=== PATIENT | male | born 1950 | race Caucasian/White ===

== ENCOUNTER → 2018-05-07 09:46 | Outpatient (POV) | payer MEDICARE, SELFPAY ==
--- NOTE | 2018-05-07 10:14 | PC.NURSE ---
patient and family have new patient paperwork and are completing at this time
[2018-05-07 11:03] VITALS: BP 177/105; PULSE 71; RESP 16; O2SAT 95; BMI 25.6
--- NOTE | 2018-05-07 12:34 | [facility].PMCON ---
Assessment and Plan (1) Complex regional pain syndrome type I of right upper extremity Current visit: Yes Status: Acute Category: Medical Code(s): G90.511 - Complex regional pain syndrome I of right upper limb This patient is failed all conservative therapy and developed complex regional pain syndrome type I of the right upper extremity. We will seek approval for spinal cord stimulator trial. We will schedule psychological evaluation. We will plan on spinal cord stimulator trial with Nuvectra with leads placed at C4 C5-C6-C7. HPI - Data of Consult Patient: new to practice Consult date: 05/07/18 Requesting Physician: Feliz Haddad MD Primary Care Provider: Referral Provider, - Consult Narrative Reason for consult: Right upper extremity complex regional pain syndrome type I History of present illness: Mr. Anderson is a 67 year old male who has CRPS type I of the right upper extremity. This was after peripheral IV placement with subsequent hematoma when he was admitted for a kidney stone in August 2012. 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 He has some use of his right hand however has significant pain with color changes and swelling. He has developed complex regional pain syndrome type I of the right upper extremity from the elbow to the hand. He also does have some significant temperature changes. He has tried and failed all conservative therapy including oral medications. He was referred by his orthopedic surgeon to us for spinal cord stimulation evaluation. CC: Feliz Haddad MD [facility] History I have reviewed the patient's past medical history: Yes Medical History: Reports:: Hyperlipidemia, Hypertension, Palpitations (atrial fibrillation) Denies:: Diabetes Mellitus Type 1, Diabetes Mellitus Type 2 Other Medical History: Reports: Arthritis (rheumatoid) Amputation: No Fractures: No - *Social History Educational Level: Attended College Smoking Status: Unknown if ever smoked Alcohol Intake: never Occupational Status: retired Housing: house Household Members: spouse - Psychiatric History Expresses thoughts of harming self/others: None Suicide Plan Description: No Plan Review of Systems - Review of Systems Review of systems:: pertinent systems reviewed and negative unless documented below - *Musculoskeletal Reports deformity, Reports joint swelling, Reports limited joint movement, Reports radiating pain into limb, Reports stiffness, Reports tingling Meds Home Medications Medication Instructions Recorded Confirmed Type Amitriptyline HCl [Elavil 10mg 20 mg PO DIRECTED 05/07/18 05/07/18 History tablet] Aspirin [Low Dose Aspirin EC] 81 mg PO DAILY 05/07/18 05/07/18 History Atorvastatin Calcium [Lipitor 80mg 134 mg PO DAILY 05/07/18 05/07/18 History Tablet] LORazepam [Ativan] 0.5 mg PO BID 05/07/18 05/07/18 History Losartan Potassium 100 mg PO DAILY 05/07/18 05/07/18 History Metoprolol Tartrate 25 mg PO BID 05/07/18 05/07/18 History Oxybutynin Chloride [Ditropan Xl] 5 mg PO BID 05/07/18 05/07/18 History Oxycodone HCl/Acetaminophen 1 tab PO DIRECTED 05/07/18 History [Percocet 10-325 mg Tab] Simvastatin [Zocor] 20 mg PO DAILY 05/07/18 05/07/18 History Allergies Allergy/AdvReac Type Severity Reaction Status Date / Time No Known Allergies Allergy Verified 05/07/18 11:16 Objective Vital signs: Pulse Resp BP Pulse Ox 71 16 177/105 95 05/07/18 11:03 05/07/18 11:03 05/07/18 11:03 05/07/18 11:03 - *Routine Neurological Exam Present: alert, oriented X3, moving all extremities Opioid Risk Tool - Opioid Risk Tool-Male Family hx alcohol abuse: N Family hx illegal drugs: N Family hx rx drug abuse: N Personal hx alcohol abuse: N Personal hx illegal drugs: N Personal hx rx drug abuse: N Age: 45+ Hx of sexual abuse: N Mental health issues-ADD,OCD,Bipolar, etc: N Hx of depr
--- NOTE | 2018-05-07 12:37 | P.CONS_ITS ---
Assessment and Plan (1) Complex regional pain syndrome type I of right upper extremity Current visit: Yes Status: Acute Category: Medical Code(s): G90.511 - Complex regional pain syndrome I of right upper limb This patient is failed all conservative therapy and developed complex regional pain syndrome type I of the right upper extremity. We will seek approval for spinal cord stimulator trial. We will schedule psychological evaluation. We will plan on spinal cord stimulator trial with Nuvectra with leads placed at C4 C5-C6-C7. HPI - Data of Consult Patient: new to practice Consult date: 05/07/18 Requesting Physician: Feliz Haddad MD Primary Care Provider: Referral Provider, - Consult Narrative Reason for consult: Right upper extremity complex regional pain syndrome type I History of present illness: Mr. Anderson is a 67 year old male who has CRPS type I of the right upper extremity. This was after peripheral IV placement with subsequent hematoma when he was admitted for a kidney stone in August 2012. 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 He has some use of his right hand however has significant pain with color changes and swelling. He has developed complex regional pain syndrome type I of the right upper extremity from the elbow to the hand. He also does have some significant temperature changes. He has tried and failed all conservative therapy including oral medications. He was referred by his orthopedic surgeon to us for spinal cord stimulation evaluation. CC: Feliz Haddad MD [facility] History I have reviewed the patient's past medical history: Yes Medical History: Reports:: Hyperlipidemia, Hypertension, Palpitations (atrial fibrillation) Denies:: Diabetes Mellitus Type 1, Diabetes Mellitus Type 2 Other Medical History: Reports: Arthritis (rheumatoid) Amputation: No Fractures: No - *Social History Educational Level: Attended College Smoking Status: Unknown if ever smoked Alcohol Intake: never Occupational Status: retired Housing: house Household Members: spouse - Psychiatric History Expresses thoughts of harming self/others: None Suicide Plan Description: No Plan Review of Systems - Review of Systems Review of systems:: pertinent systems reviewed and negative unless documented below - *Musculoskeletal Reports deformity, Reports joint swelling, Reports limited joint movement, Reports radiating pain into limb, Reports stiffness, Reports tingling Meds Home Medications Medication Instructions Recorded Confirmed Type Amitriptyline HCl [Elavil 10mg 20 mg PO DIRECTED 05/07/18 05/07/18 History tablet] Aspirin [Low Dose Aspirin EC] 81 mg PO DAILY 05/07/18 05/07/18 History Atorvastatin Calcium [Lipitor 80mg 134 mg PO DAILY 05/07/18 05/07/18 History Tablet] LORazepam [Ativan] 0.5 mg PO BID 05/07/18 05/07/18 History Losartan Potassium 100 mg PO DAILY 05/07/18 05/07/18 History Metoprolol Tartrate 25 mg PO BID 05/07/18 05/07/18 History Oxybutynin Chloride [Ditropan Xl] 5 mg PO BID 05/07/18 05/07/18 History Oxycodone HCl/Acetaminophen 1 tab PO DIRECTED 05/07/18 History [Percocet 10-325 mg Tab] Simvastatin [Zocor] 20 mg PO DAILY 05/07/18 05/07/18 History Allergies Allergy/AdvReac Type Severity Reaction Status Date / Time No Known Allergies Allergy Verified 05/07/18 11
== END ==
PROVIDERS: Visit Provider Anesthesiology
DX: G90.511 Complex regional pain syndrome I of right upper limb (principal)
CPT/HCPCS: 99201

== ENCOUNTER → 2018-07-13 09:33 | Outpatient (POV) | payer MEDICARE, SELFPAY ==
[2018-07-13 09:42] VITALS: BP 166/93; PULSE 82; RESP 18; O2SAT 98; BMI 26.2
--- NOTE | 2018-07-13 11:07 | P.CONS_ITS ---
[facility] Pain Management SOAP Note Subjective:: Patient is a 68-year-old male who presents today for follow-up after neurostimulator trial. Patient states that he got good relief. He states he is 70-80% better in his arm and low back. Patient did have some procedural site pain along with a little bit of increasing back discomfort which resolved after his epidural leads were pulled. Patient leads have been pulled with no sign symptoms of infection. Patient is doing well at this time. Patient is interested in moving forward with a permanent implant we will send him to Dr. Andujar for evaluation. He rates his pain a 3 out of 10 today. ROS General: no recent weight change, no fever, no sleep disturbances Respiratory: no cough, no shortness of air, no recurring pulmonary infections Cardiovascular/Peripheral Vascular: No chest pain, No palpitations, no edema, no shortness of breath. Gastrointestinal: no incontinence, normal bowel movements reported Genitourinary: no incontinence Musculoskeletal: Right arm pain, low back pain, leg pain Psychiatric: normal mood/ affect Neurological: [denies weakness in extremities], [denies balance issues] Objective:: Physical Exam General: Alert and oriented x3, no acute distress, pleasant and cooperative, [on room air] Lungs: Resps E/U, Symmetrical chest expansion, Eyes: PERRL Musculoskeletal:ROM right arm somewhat guarded secondary to pain, deep tendon reflexes normal, strength in upper and lower extremities [5/5], [abnormal gait noted] Neurological: speech clear, salesperson men's and boys' clothing equal, no gross sensory deficits Assessment:: Complex regional pain syndrome type I and II right upper extremity and degenerative disc disease lumbar spine with lumbar radiculopathy symptoms Plan:: We will set the patient up for a permanent implant with Dr. Andujar. I answered all of the patient's questions and went over the procedure with him. We will follow-up with him after Dr. Andujar has implanted him. This note was dictated using voice recognition software and may contain errors or omissions
== END ==
PROVIDERS: PCP Family Medicine; Visit Provider Clinical Nurse Specialist Family Health
DX: G90.511 Complex regional pain syndrome I of right upper limb (principal); G56.41 Causalgia of right upper limb; M51.16 Intervertebral disc disorders with radiculopathy, lumbar region
CPT/HCPCS: 99213